=== PATIENT | female | born 1970 | race Caucasian/White ===

== ENCOUNTER → 2017-05-05 | Outpatient (CLI) | payer OTHER ==
[~2017-05-05] VITALS: Ht 152.4 cm; Wt 68.0 kg
[~2017-05-05] MED LIST: CALAN SR120 MG
== END | disposition home or self-care (01) ==
LOC: PPHC 10:17
DX: J11.1 Influenza due to unidentified influenza virus with other respiratory manifestations (principal)

== ENCOUNTER 2018-03-12 14:02 | Emergency (ER) | payer OTHER ==
[~2018-03-12] VITALS: Ht 162.6 cm; Wt 68.0 kg
[2018-03-12] MEDS ORDERED: ATACAND16 MG (14:07)
[2018-03-12] MEDS ORDERED: HYDROCHLOROTH12.5 M1 (14:07)
== END 2018-03-12 18:13 | disposition home or self-care (01) ==
LOC: ER 14:02
DX: N20.1 Calculus of ureter (principal); N39.0 Urinary tract infection, site not specified

== ENCOUNTER 2018-06-27 17:20 | Emergency (ER) | payer OTHER ==
[~2018-06-27] VITALS: Ht 162.6 cm; Wt 68.0 kg
[~2018-06-27 17:20] MED LIST changes: +ATACAND16 MG; +HYDROCHLOROTH12.5 M1
== END 2018-06-27 20:02 | disposition home or self-care (01) ==
LOC: ER 17:20
DX: M54.5 Low back pain (principal); K59.09 Other constipation